=== PATIENT | female | born 1955 | race Caucasian/White ===

== ENCOUNTER → 2021-12-15 | Outpatient (CLI) | payer OTHER | LOC: KOH-I 12:20 | DX: R05.9 Cough, unspecified (principal) | CPT/HCPCS: 71046 ==

== ENCOUNTER → 2022-01-16 | Outpatient (CLI) | payer OTHER | LOC: EXRD 13:00 | DX: R09.89 Other specified symptoms and signs involving the circulatory and respiratory systems (principal); I65.23 Occlusion and stenosis of bilateral carotid arteries | CPT/HCPCS: 93880 ==

== ENCOUNTER 2022-01-26 12:01 | Emergency (ER) | payer OTHER ==
[2022-01-26 12:52] LABS: HEMOGLOBIN 12.8 gm/dl (12.3-15.3); RED BLOOD COUNT 4.31 M/UL (4.00-5.10); WHITE BLOOD COUNT 6.5 K/UL (4.5-11.0)
[2022-01-26 13:21] LABS: BUN/CREATININE RATIO 13 (0-10)
== END 2022-01-26 16:30 | disposition home or self-care (01) ==
LOC: ER1 12:01
PROVIDERS: Physician Assistant Medical
DX: R07.89 Other chest pain (principal); R51.9 Headache, unspecified; R29.898 Other symptoms and signs involving the musculoskeletal system; E78.5 Hyperlipidemia, unspecified
CPT/HCPCS: 70450; 71045; 80053; 81001; 82550; 82553; 84439; 84443; 84484; 85025; 93005; 99285

== ENCOUNTER → 2022-04-24 | Outpatient (CLI) | payer OTHER | LOC: HEART 5 09:30 | DX: R07.9 Chest pain, unspecified (principal) | CPT/HCPCS: 78452; A9502 ==